=== PATIENT | male | born 1975 | race Hispanic/Latino ===

== ENCOUNTER 2022-08-29 15:16 | Emergency (ER) | payer BC, SELFPAY ==
[2022-08-29 15:35] VITALS: BP 125/56; PULSE 79; RESP 16; TEMP 37.1; O2SAT 98
--- NOTE | 2022-08-29 16:26 | ED.SKABFB ---
HPI - Skin/Abscess/Foreign Bdy General Chief complaint: Skin/Abscess/Foreign Body Stated complaint: Rash Time Seen by Provider: 08/29/22 16:17 Source: patient and RN notes reviewed Mode of arrival: ambulatory Limitations: no limitations History of Present Illness HPI narrative: Patient presents today complaining of a 2 to three-week history of a severely pruritic rash that started on his hands and has spread up to his bilateral upper arms. He has been using topical antiseptic/pain relieving gel over the past couple of days without much relief. Denies pain, but has been scratching profusely. Unsure of the cause. Denies exposure to new household products, plants, animals, medications, foods Related Data Allergies Allergy/AdvReac Type Severity Reaction Status Date / Time No Known Allergies Allergy Verified 08/29/22 15:38 Review of Systems Review of Systems: CONSTITUTIONAL: Denies body aches, fever, chills, or sweats. EYES: Denies visual changes, redness, or discharge. ENT: Denies rhinorrhea, congestion, sore throat, or otalgia. CARDIOVASCULAR: Denies chest pain, palpitations, or edema. RESPIRATORY: Denies cough or dyspnea. GASTROINTESTINAL: Denies abdominal pain, nausea, vomiting, or diarrhea. GENITOURINARY: Denies dysuria or hematuria. SKIN: + pruritic rash MUSCULOSKELETAL: Denies back pain, joint pain, or myalgia. NEUROLOGIC: Denies headache, numbness, tingling, or weakness. PSYCH: Denies depression or anxiety. PMFSH Comments At time of signature, I have reviewed and agree with nursing past medical, surgical, social and family history unless otherwise noted. Please see nursing chart for further information. There is no relevant family history pertinent to the presenting complaint Exam Narrative: GENERAL: Well-appearing, well-nourished, and in no acute distress. HEAD: Normocephalic, atraumatic. EYES: EOMI. No redness or drainage. Conjunctivae normal. ENT: Mucous membranes pink and moist. NECK: Normal AROM. CHEST: No respiratory distress. EXTREMITIES: Normal range of motion. No edema. SKIN: Warm, dry. Capillary refill normal. Normal skin turgor. Multiple areas excoriation to the dorsums of the bilateral hands surrounded in erythema and mild edema, with these small scattered areas of excoriation extending to the forearms and [facility] up the bilateral upper arms. There are several open areas that are draining some clear to purulent discharge. NEURO: No focal deficits. Alert and oriented x3. Gait steady. PSYCH: Normal affect. No signs of depression or anxiety. Course Course Level of Care: Express Care Visit Vital Signs Vital signs: Vital Signs Temperature 98.8 F 08/29/22 15:35 Pulse Rate 79 08/29/22 15:35 Respiratory Rate 16 08/29/22 15:35 Blood Pressure 125/56 L 08/29/22 15:35 Pulse Oximetry 98 08/29/22 15:35 Oxygen Delivery Room Air 08/29/22 15:35 Temperature 98.8 F 08/29/22 15:35 Pulse Rate 79 08/29/22 15:35 Respiratory Rate 16 08/29/22 15:35 Blood Pressure 125/56 L 08/29/22 15:35 Pulse Oximetry 98 08/29/22 15:35 Oxygen Delivery Room Air 08/29/22 15:35 Reviewed. Pt has been instructed to follow up with his PCP regarding his elevated blood pressure today. MDM - Skin/Abscess/Foreign Bdy MDM Narrative Medical decision making narrative: Exam consistent with dermatitis and cellulitis. Will treat with Keflex, prednisone, and mupirocin ointment for the dorsums of the hands. Anticipatory guidance given. Differential Diagnosis Differential diagnosis: Likely abscess of skin or subcutaneous tissue, dermatophytosis, cellulitis, eczema, impetigo and contact dermatitis Critical Care Time Critical Care Time Critical Care Time: No Discharge Plan Discharge Clinical Impression: Dermatitis Cellulitis Qualifiers: Site of cellulitis: unspecified site Qualified Code(s): L03.90 - Cellulitis, unspecified Patient Disposition: Home, Self-Care Conditi
== END 2022-08-29 16:36 | disposition home or self-care (01) ==
PROVIDERS: Emergency Provider Nurse Practitioner
DX: L03.114 Cellulitis of left upper limb (principal); L03.113 Cellulitis of right upper limb; L30.9 Dermatitis, unspecified
CPT/HCPCS: 99203; G0463

== ENCOUNTER 2024-09-23 10:30 | Outpatient (CLI) | payer BC, SELFPAY ==
--- NOTE | ~2024-09-23 | US_ITS ---
US right upper quadrant INDICATION: Right upper quadrant pain. Dyspepsia. Reflux. PROCEDURE: Realtime right upper abdominal ultrasound. COMPARISON: No prior studies for comparison. FINDINGS: The pancreas is normal without focal mass or pancreatic ductal dilation. Fatty infiltratio n of the liver. There is normal directional flow in the portal vein. The gallbladder is normal without stones, gallbladder wall thickening or pericholecystic fluid. Comm on bile duct measures 4 mm. No sonographic Beth's sign. IMPRESSION: 1: Fatty infiltration of the liver. Reviewed, dictated and finalized at location A.
== END 2024-09-23 10:31 | disposition home or self-care (01) ==
LOC: MICIMG 10:32
DX: K30 Functional dyspepsia (principal)
CPT/HCPCS: 76705